=== PATIENT | female | born 1980 | race Caucasian/White ===

== ENCOUNTER 2022-01-15 16:52 | Emergency (ER) | payer MEDICAID ==
[~2022-01-15] VITALS: Ht 160 cm; Wt 83.9 kg
[~2022-01-15 16:52] MED LIST: AMOX-1230 PO; OXYC1TAB PO
[2022-01-15 17:04] VITALS: BP 160/93
--- NOTE | 2022-01-15 17:12 | NUR ---
PT AMB TO BED 10.
--- NOTE | 2022-01-15 17:30 | NUR ---
41 y/o female bib self, pt presents to er with sob, difficulty breathing started yesterday. pt states she also had one episode of emesis. denies any n/v/d at this time. pt states she has been having cp that radiates to back and pleitez 03/20. lung sounds wheezing bl, heart sounds even and tachycardic. a&ox4, azeri speaking, ambulates with even and steady gait. pmh: asthma, htn nka med: albuterol (pt states she ran out of her medication)
[2022-01-15] MEDS ORDERED: ALBUTEROL SULFATE/IPRATROPIU 3 ML SOL IH ONE (17:35)
[2022-01-15] MEDS ORDERED: BENZONATATE 100 MG CAPLF PO ONE (17:35)
--- NOTE | 2022-01-15 17:52 | NUR ---
Respiratory Therapist at bedside for respiratory intervention. Patient tolerated .
--- NOTE | 2022-01-15 18:06 | NUR ---
XRAY AT BEDSIDE CHARTED BY KRISTYN YE
--- NOTE | 2022-01-15 18:44 | NUR ---
Patient appears to be resting comfortably in bed. Vital Signs within normal limits. Respirations even and unlabored. ice water given at this time
[2022-01-15] MEDS ORDERED: BENZ200C4 PO (18:54)
[2022-01-15] MEDS ORDERED: PRED20TA5 PO (18:54)
[2022-01-15] MEDS ORDERED: LORA10TA19 PO (18:54)
[2022-01-15] MEDS ORDERED: ALBU0.0912 INH (18:54)
[2022-01-15 19:27] VITALS: BP 130/86
--- NOTE | 2022-01-15 19:27 | NUR ---
Patient discharged with v/s stable. Written and verbal after care instructions given and explained. Patient alert, oriented and verbalized understanding of instructions. Ambulatory with steady gait. All questions addressed prior to discharge. ID band removed. Patient advised to follow up with PMD. Rx of Albuterol Sulfate, Benzonatate, Loratadine and Prednisone. given. Patient educated on indication of medication including possible reaction and side effects. Opportunity to ask questions provided and answered.
== END 2022-01-15 19:27 | disposition home or self-care (01) ==
LOC: MED 16:52
DX: J06.9 Acute upper respiratory infection, unspecified (principal); J45.901 Unspecified asthma with (acute) exacerbation; Z79.899 Other long term (current) drug therapy
CPT/HCPCS: 71045; 93005; 94640; 99285

== ENCOUNTER 2022-08-14 09:32 | Emergency (ER) | payer SELFPAY ==
[~2022-08-14] VITALS: Ht 160 cm; Wt 85.7 kg
[~2022-08-14 09:32] MED LIST changes: +ALBU0.0912 INH; +BENZ200C4 PO; +LORA10TA19 PO; +PRED20TA5 PO
[2022-08-14 09:36] VITALS: BP 137/72
--- NOTE | 2022-08-14 10:02 | NUR ---
42/F PRESENTS TO ED WITH C/O CHEST PAIN RADIATING TO BACK X3 DAYS, TOOK MOTRIN WITH NO RELIEF. PATIENT DENIES INJURY, TRAUMA OR RECENT HEAVY LIFTING, STATES SHE HAS HAD A COUGH THE PAST WEEK. PATIENT DENIES SOB, N/V/D, HEADACHE OR DIZZINESS.
[2022-08-14] MEDS ORDERED: KETOROLAC 30 MG/ML VIAL IVP ONE (10:10)
[2022-08-14] MEDS ORDERED: methylPREDNISolone SS 125 MG/2 ML VIAL IVP ONE (10:15)
[2022-08-14] MEDS ORDERED: ALBUTEROL SULFATE/IPRATROPIU 3 ML SOL IH ONE (10:15)
--- NOTE | 2022-08-14 10:32 | NUR ---
[facility] ORDERED ENCOURAGED PATIENT FOR INTERMITTETNT DEEP BREATHING DURING THERAPY
--- NOTE | 2022-08-14 10:37 | NUR ---
RAD at bedside
[2022-08-14 10:43] LABS: BASOPHILS # (AUTO) 0.1 K/uL (0.00-0.22); BASOPHILS % (AUTO) 1.1 % (0.0-2.0); EOSINOPHILS # (AUTO) 0.4 K/uL (0-0.4); EOSINOPHILS % (AUTO) 4.5 % (0.0-4.0); HEMATOCRIT 32.1 % (36-48); HEMOGLOBIN 10.4 g/dL (12.0-16.0); LYMPHOCYTES # (AUTO) 2.5 K/uL (2.5-16.5); LYMPHOCYTES % (AUTO) 26.3 % (20.5-51.1); MEAN CORPUSCULAR HEMOGLOBIN 25 pg (27-31); MEAN CORPUSCULAR HGB CONC 33 g/dL (33-37); MEAN CORPUSCULAR VOLUME 76.4 fL (80-94); MONOCYTES # (AUTO) 0.6 K/uL (0.8-1.0); MONOCYTES % (AUTO) 6.6 % (1.7-9.3); NEUTROPHILS # (AUTO) 5.9 K/uL (1.8-7.7); NEUTROPHILS % (AUTO) 61.5 % (42.2-75.2); PLATELET COUNT (AUTO) 298 K/uL (140-450); RED CELL DISTRIBUTION WIDTH 14.3 % (11.6-13.7); WHITE BLOOD COUNT (AUTO) 9.6 K/uL (4.8-10.8)
[2022-08-14 11:20] LABS: ALBUMIN 3.2 g/dL (3.4-5.0); ANION GAP 10.5 (8-16); CARBON DIOXIDE 27.7 mmol/L (21-32); CREATININE 0.6 mg/dL (0.6-1.3); POTASSIUM 4.2 mmol/L (3.5-5.1); TOTAL BILIRUBIN 0.3 mg/dL (0.0-1.0)
[2022-08-14] MEDS ORDERED: BENZ100C6 PO (13:49)
[2022-08-14] MEDS ORDERED: PRED20TA5 PO (13:49)
[2022-08-14] MEDS ORDERED: ALBU0.0912 IH (13:49)
[2022-08-14] MEDS ORDERED: DEXT118S25 PO (13:49)
--- NOTE | 2022-08-14 14:10 | NUR ---
IV removed, catheter intact and site benign. Applied folded 4x4 gauze and tape to stop bleeding.
[2022-08-14 14:13] VITALS: BP 107/60
--- NOTE | 2022-08-14 14:13 | NUR ---
Patient discharged with v/s stable. Written and verbal after care instructions given and explained. Patient alert, oriented and verbalized understanding of instructions. Ambulatory with steady gait. All questions addressed prior to discharge. ID band removed. Patient advised to follow up with PMD. Rx of PROVENTIL, BENZONATATE, TUSSIN LIQUID, DELTASONE given. Patient educated on indication of medication including possible reaction and side effects. Opportunity to ask questions provided and answered.
== END 2022-08-14 14:13 | disposition home or self-care (01) ==
LOC: MED 09:32
DX: J45.901 Unspecified asthma with (acute) exacerbation (principal); Z20.822 Contact with and (suspected) exposure to COVID-19; J06.9 Acute upper respiratory infection, unspecified; R05.9 Cough, unspecified; R07.9 Chest pain, unspecified; D64.9 Anemia, unspecified; F17.210 Nicotine dependence, cigarettes, uncomplicated; I10 Essential (primary) hypertension; J45.909 Unspecified asthma, uncomplicated; Z79.899 Other long term (current) drug therapy; Z98.890 Other specified postprocedural states
CPT/HCPCS: 36415; 71045; 80053; 81025; 83880; 84484; 85025; 85379; 87426; 87804; 93005; 94640; 96374; 96375; 99285; J1885; J2930

== ENCOUNTER 2023-07-17 19:04 | Emergency (ER) | payer SELFPAY ==
[~2023-07-17] VITALS: Ht 160 cm; Wt 86.2 kg
[~2023-07-17 19:04] MED LIST changes: +ALBU0.0912 IH; +BENZ100C6 PO; +DEXT118S25 PO
[2023-07-17 19:11] VITALS: BP 129/89; PULSE 121; RESP 20; TEMP 99.6; O2SAT 97
[2023-07-17] MEDS ORDERED: BENZ200C4 PO (19:29)
[2023-07-17 19:50] VITALS: BP 129/89; PULSE 99; RESP 20; TEMP 98.1; O2SAT 97
[2023-07-17 20:39] LABS: FLU A ANTIGEN negative (NEGATIVE); FLU B ANTIGEN negative (NEGATIVE)
== END 2023-07-17 19:50 | disposition home or self-care (01) ==
LOC: MED 19:04
DX: J06.9 Acute upper respiratory infection, unspecified (principal); R51.9 Headache, unspecified; Z20.822 Contact with and (suspected) exposure to COVID-19; J45.909 Unspecified asthma, uncomplicated; Z79.899 Other long term (current) drug therapy; Z79.2 Long term (current) use of antibiotics
CPT/HCPCS: 99283

== ENCOUNTER 2023-08-21 12:10 | Emergency (ER) | payer SELFPAY ==
[~2023-08-21] VITALS: Ht 160 cm; Wt 88.5 kg
[2023-08-21 12:48] VITALS: BP 117/73; PULSE 106; RESP 18; TEMP 98; O2SAT 99
[2023-08-21] MEDS ORDERED: LIDOCAINE MPF 1% 10 MG/ML VIAL INJ ONE (14:35)
[2023-08-21] MEDS ORDERED: HYDROcodone/APAP 5/325 MG 1 TAB TAB PO ONE (15:20)
[2023-08-21] MEDS ORDERED: CEPH-588 PO (15:21)
[2023-08-21] MEDS ORDERED: IBUP-2218 PO (15:22)
== END 2023-08-21 15:45 | disposition home or self-care (01) ==
LOC: MED 12:10
DX: L02.31 Cutaneous abscess of buttock (principal); J45.909 Unspecified asthma, uncomplicated; Z79.899 Other long term (current) drug therapy; Z79.1 Long term (current) use of non-steroidal anti-inflammatories (NSAID); Z79.2 Long term (current) use of antibiotics
CPT/HCPCS: 10060; 99283; J2001